=== PATIENT | male | born 1940 | race African-American/Black ===

== ENCOUNTER 2017-03-05 08:15 | Outpatient (RCR) ==
[2015-06-02 20:56] VITALS: BMI 27.3
--- NOTE | 2017-03-04 15:23 | RS.OPPTEV2 ---
Date of Note: 03/01/17 Visit #: 1 Date of Evaluation: 03/01/17 Payer Source: MEDICARE Treatment Diagnosis: Left shoulder pain, RTC tear and biceps tendonitis History of Condition/Mechanism of Injury:: Patient reports left shoulder pain for about 3 weeks. States he thought he had slept on the shoulder wrong. No specific known injury. Prior Level of Function.....Patient was independent with: ADL's, Self Care, Caregiving, Ambulation/Mobility, Community Integration/Access Functional Limitations: Sleep, Self Care, Reaching, Pushing, Pulling, Lifting, Carrying Current Subjective/complaints:: Patient reports receiving an injection in the left shoulder one week ago, which has helped. States he has no pain at rest, but the shoulder is sore. States most of his pain is usually in the posterior and anterior aspect of the shoulder joint. 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 Treatment Side (optional): Left Medical History Medical History: Unremarkable Patient's Goals: His goal is to get relief of left shoulder pain. Pain Assessment - Pain Description Pain Location: left shoulder Current Pain Intensity: 6/10 Functional Outcome Measure UE Functional Index: 71 (71/80=11.25% impaired) - G Codes & Severity Modifier G Codes & Modifier: Carry current CI. Carry goal CH Source of G Code score: UE functional index Observation - Observation Posture: Forward Head, Rounded Shoulders Handedness: Right Shoulder ROM: Right WFL's Shoulder Muscle Strength: Right WFL's - Left Shoulder ROM Left Shoulder Flexion: 110 (degrees AROM) Left Shoulder Abduction: 94 (degrees AROM) Left Shoulder External Rotation: 62 (degrees AROM) Left Shoulder ROM Limitations: Pain Comments: PROM of the left shoulder is WFL's with reports of pain with end range ER and IR. - Left Shoulder Strength Left Shoulder Flexion: 4+ Good + Left Shoulder Extension: 5 Normal Left Shoulder Abduction: 4+ Good + Left Shoulder Adduction: 5 Normal Left Shoulder External Rotation: 4 Good Left Shoulder Internal Rotation: 4 Good Comments: Pain reported with resisted ER and abduction. - Special Tests Shoulder Empty Can (Supraspinatus) Test: Positive Left Shoulder Speed's Sign Test: Positive Left Shoulder Drop Arm Test: Negative Left Shoulder Linares-Dale Impingement Test: Positive Left Palpation Comments:: Patient reports no tenderness with palpation throughout the GH joint. Sensation - Sensation Right Upper Extremity: Intact/Normal Left Upper Extremity: Intact/Normal Interventions - Exercise/Activities/Manual Therapy Exercises/Activities: Pt instructed in pendulum, scapular retraction, RTC series. Advised to perform the exercises in a range that does not increase any pain. Manual Therapy: NA HOME EXERCISE PROGRAM: pendulum, scapular retraction, RTC series. - Charges Total Direct Minutes: 40 mins Total Treatment Time: 40 mins Procedures billed for this date of service:: YULIA YANG Assessment Assessment: Patient presents to therapy with a diagnosis of left RTC tear and biceps tendonitis. He demonstrates limited AROM due to pain above shoulder height. Also demonstrates weakness of the left shoulder, especially into ER and IR. He will benefit from therapeutic exercises and modalities as indicated to reduce his pain and improve his functional left shoulder AROM. Patient Education: Education of diagnosis, Body/Joint mechanics, Home Exercise Program, Home Safety, Activity Modification, Education of Plan of Care Rehab Potential: Good Short Term Goals Goal #1: Pt independent and compliant with basic HEP. Goal to be met by: 03/15/17 Goal #2: Right shoulder AROM WFL's with minimal discomfort. Goal to be met by: 03/18/17 Goal #3: Right shoulder IR and ER strength 4+/5. Goal to be met by: 03/18/17 Wood Piler Goals Goal #1: Pt knows HEP and to cont. exercises to maintain functional level at DC. Goal to be met by: 04/13/17 Goal #2: Score on UE functional scale improved to 0 impairment. Goal to be met by: 04/13/17 Goal #3: Pt able to use left UE for selfcare and ADL's without discomfort. Goal to be met by: 04/13/17 Goal #4: Pt to demonstrate good postural awareness. Goal to be met by: 04/13/17 Plan - Treatment to be Provided Procedures: Therapeutic Exercises, Therapeutic Activity, Manual Therapy, Patient Education Modalities: Ultrasound/Phonophoresis, Cryotherapy, Hot Packs - Treatment Plan Frequency: 2-3 X week Duration: 4 weeks ORDER # VISITS AND/OR THROUGH DATE: 04/13/17 - Treatment Code (1) Shoulder pain Qualifiers: Laterality: left Chronicity: acute Qualified Description: Acute pain of left shoulder Qualifier Code(s): (M25.512) Pain in left shoulder (2) Shoulder stiffness Qualifiers: Laterality: left Qualified Description: Stiffness of shoulder joint, left Qualifier Code(s): (M25.612) Stiffness of left shoulder, not elsewhere classified (3) Rotator cuff tear Qualifiers: Rotator cuff tear extent: unspecified tear extent Laterality: left Qualified Description: Tear of left rotator cuff, unspecified tear extent Qualifier Code(s): (M75.102) Unspecified rotator cuff tear or rupture of left shoulder, not specified as traumatic
--- NOTE | 2017-03-05 10:26 | RS.OPPTDN ---
Subjective Date of Note: 03/05/17 Visit #: 2 Date of Evaluation: 03/01/17 Payer Source: MEDICARE Treatment Diagnosis: Left shoulder pain, RTC tear and biceps tendonitis Current Subjective/complaints:: Patient reports he has no pain. States he is working on HEP as instructed. States he will continue progression of resistive exercise with therabands as instructed today. Pain Assessment - Pain Description Pain Location: left shoulder Current Pain Intensity: 0/10 Interventions - Exercise/Activities/Manual Therapy Exercises/Activities: Reviewed HEP of pendulum, scapular retraction, and RTC series. Added 3# to RTC series. Red theraband for bilateral shoulder ER and left UE IR and ER with shoulder at 90 degrees flexion. Green theraband for scapular retraction. Isometrics for shoulder add, ext, abd, and flexion in neutral shoulder. "Empty-can" shoulder flexion. Total minutes of Exercise: 20mins Manual Therapy: NA HOME EXERCISE PROGRAM: pendulum, scapular retraction, RTC series. Red theraband for bilateral shoulder ER, and left shoulder IR and ER with shoulder at 90 degrees. Isometrics x4 directions. Green theraband for scapular retraction. - Charges Total Direct Minutes: 20mins Total Treatment Time: 20mins Procedures billed for this date of service:: EX Assessment: Patient reporting no pain and doing exercise as instructed. Will need to reassess progress next week and prepare for discharge as indicated. Patient Education: Education of diagnosis, Body/Joint mechanics, Home Exercise Program, Activity Modification Patient demonstrates compliance with HEP?: Yes Short Term Goals Goal #1: Pt independent and compliant with basic HEP. Goal to be met by: 03/15/17 (100%) Progress towards Goal:: Met Goal #2: Right shoulder AROM WFL's with minimal discomfort. Goal to be met by: 03/18/17 (100%) Progress towards Goal:: Met Goal #3: Right shoulder IR and ER strength 4+/5. Goal to be met by: 03/18/17 Progress towards Goal:: Progressing Comments:: 4 to 4+/5 MMT [facility] Goals Goal #1: Pt knows HEP and to cont. exercises to maintain functional level at DC. Goal to be met by: 04/13/17 Progress towards goal: Progressing Goal #2: Score on UE functional scale improved to 0 impairment. Goal to be met by: 04/13/17 Goal #3: Pt able to use left UE for selfcare and ADL's without discomfort. Goal to be met by: 04/13/17 Progress towards goal: Met Goal #4: Pt to demonstrate good postural awareness. Goal to be met by: 04/13/17 Progress towards goal: Met Plan PLAN OF CARE EXPIRES ON:: 04/13/17 ORDER # VISITS AND/OR THROUGH DATE: 04/13/17 PLAN: Continue Plan of Care (Will see patient again next week to review and progress exercise as indicated. If patient continues to be pain-free and independent with HEP, will prepare for discharge.)
--- NOTE | 2017-03-15 11:46 | RS.QUICKDC ---
Discharge from PT Date of Discharge: 03/14/17 Number of Visits: 2 Reason for Discharge: Patient attended initial Evaluation and one additional session. Patient was instructed in dx, joint mechanics, and HEP. He reported a significant improvement in pain on last visit. He stated he felt he could continue HEP. Patient made a follow-up appointment but did not attend. Patient was independent with HEP, AROM was WFL, and only had discomfort at end range. Please refer to last Daily Note for specifics of treatment and goals. (G-CODES : Carrying, Moving, and Handling Objects GOAL CH, D/C CI) Discharge at this time as patient did not attend last session.
== END 2017-03-24 ==
PROVIDERS: ATTEND Orthopaedic Surgery
DX: M75.102 Unspecified rotator cuff tear or rupture of left shoulder, not specified as traumatic (principal); M75.22 Bicipital tendinitis, left shoulder

== ENCOUNTER 2018-08-15 11:53 | Outpatient (CLI) ==
[2015-06-02 20:56] VITALS: BMI 27.3
== END 2018-08-15 11:54 | disposition home or self-care (01) ==
LOC: CAR 11:53
PROVIDERS: ATTEND Physician Assistant
DX: R94.31 Abnormal electrocardiogram [ECG] [EKG] (principal)
CPT/HCPCS: 93005; 93010

== ENCOUNTER 2018-09-02 06:46 | Outpatient (CLI) ==
[2015-06-02 20:56] VITALS: BMI 27.3
--- NOTE | 2018-09-02 13:59 | ECHO2D ---
Date of Exam: 09/02/18 Ordering Physician: DR. JAYNE ORTIZ Room #: OP Reason for Echo: SOB, CHEST HEAVINESS M-Mode Normal Adult Results LV Dimensions Normal Adult Results AoV Opening excursions >1.6 >1.6 LVEDD-base- 3.5-5.8 4.9 Ao root dimensions 2.0-3.7 3.3 LVESD-base- 3.1-4.6 L. Atrium dimensions 1.9-3.8 3.9 Post. Wall thickness 0.8-1.1 1.2 IV septum (thickness) 0.7-1.2 1.2 Post. Wall excursion 0.72-1.3 NORMAL Septal motion NORMAL Systolic motion R. Ventricular cavity 1.5-2.0 NORMAL LVEF 60% 60% Paradoxical septal wall motion NORMAL 2-D : 2-D M Mode Echocardiogram was performed using apical four chamber and left parasternal long and short axis views. Mitral, tricuspid and aortic valves appear to be normal. Contractility of the left ventricle seems to be normal, so is the cavity size. Left atrial cavity size and aortic root appear to be normal. There is no pericardial effusion. There is no thrombus noted in the left ventricular or left aortic cavity. No mitral valve prolapse noted. M-MODE: MV: NORMAL AV: NORMAL TV: NORMAL PV: CHAMBER SIZE: NORMAL WALL MOTION: NORMAL PERICARDIUM: NORMAL INTERPRETATION: 1. BORDERLINE LEFT VENTRICULAR HYPERTROPHY 2. NORMAL LEFT VENTRICULAR CONTRACTILITY 3. NORMAL VALVES MTDD
== END 2018-09-02 06:47 | disposition home or self-care (01) ==
LOC: CAR 06:46
PROVIDERS: ATTEND Internal Medicine
DX: R06.02 Shortness of breath (principal); R07.89 Other chest pain
CPT/HCPCS: 93005; 93010

== ENCOUNTER 2018-09-03 06:50 | Outpatient (CLI) | payer OTHER ==
[2015-06-02 20:56] VITALS: BMI 27.3
[2018-09-03] MEDS ORDERED: DOBUTAMINE 500 MG-D5W 250 ML IV ONE (08:13)
[2018-09-03] MEDS: DOBUTAMINE 500 MG-D5W 250 ML 500 MG in PREMIX 250 ML D5W 1 BAG IV ONE (08:19)
[2018-09-03] MEDS: ATROPINE SULFATE PFS ONE (08:35)
--- NOTE | 2018-09-03 10:50 | NM ---
Cardiac Stress Test HISTORY: Shortness of breath. Chest heaviness. COMPARISON: None of this type. TECHNIQUE: Resting: The patient was injected with 3.6 mCi of thallium 201 chloride intravenously after which a "resting" SPECT study of the heart was performed. Stress: The patient was stressed pharmacologically with dobutamine and at the appropriate time injec felipe with 26 millicuries of 99m technetium Sestamibi (Cardiolite) after which a "stress" SPECT study o f the heart was performed. Gated images of the heart were also obtained to assess wall motion and abimbola culate ejection fraction. For details of the stress protocol employed, reference is made to the sepa rate report of the performing physician. FINDINGS: The stress perfusion images demonstrate a region of decreased activity in the septum which appears to reperfuse at rest. The resting perfusion images demonstrate no evidence of significant r edistribution/ischemia elsewhere. The left ventricular ejection fraction (LVEF) is 65%. IMPRESSION: 1. Left ventricular myocardial perfusion demonstrates a region of ischemia in the septum. 2. The left ventricular ejection fraction (LVEF) is 65%.
--- NOTE | 2018-09-04 07:30 | DOBSTECHST ---
Ordering Physician: DR. JAYNE ORTIZ Date of Test: 09/03/18 Reason for Examination: SOB, CHEST HEAVINESS Smoking History: NONE Height: 67" Weight: 170 LBS Current Medications: AMLODIPINE, ASA, NEURONTIN, TAMSULOSIN Target Heart Rate: 120/142 S-T Segment Stage Time HR BPM BP MMHG Rhythm +/- Elevation Depression Comments/ Symptoms Control Sitting 52 148/68 SR X NONE Dobutamine 250mg/D5W 5cmg/KG/mn 10cmg/KG/mn 3:00 63 SR X NONE 15cmg/KG/mn 2:02 104 128/60 SR X NONE 20cmg/KG/mn 25cmg/KG/mn 30cmg/KG/mn 35cmg/KG/mn 40cmg/KG/mn 3 MIN POST INFUSION z 70 132/68 X NONE 6 MIN POST INFUSION z 62 140/70 X NONE DURATION OF INFUSION 5:02 MAXIMUM HEART RATE REACHED 104 97% OXYGEN SATURATION WITH DOBUTAMINE INFUSION Interpretation: 1. TEST POSITIVE FOR ISCHEMIC ST-T WAVE CHANGES 2. NO CHEST PAIN OR DISCOMFORT 3. NO ARRHYTHMIAS 4. BLOOD PRESSURE RESPONSE: ADEQUATE JENIFER LEFT VENTRICULAR CONTRACTILITY--RESTING AND WITH DOBUTAMINE INFUSION MTDD
--- NOTE | 2018-09-04 07:34 | ECHOSTRESS ---
Date of Exam: 09/03/18 Ordering Physician: DR. JAYNE ORTIZ Reason for Echo: SOB, CHEST HEAVINESS, DOBUTAMINE STRESS SESTAMIBI--POSITIVE FOR ISCHEMIA M-Mode Normal Adult Results LV Dimensions Normal Adult Results AoV Opening excursions >1.6 LVEDD-base- 3.5-5.8 Ao root dimensions 2.0-3.7 LVESD-base- 3.1-4.6 L. Atrium dimensions 1.9-3.8 Post. Wall thickness 0.8-1.1 IV septum (thickness) 0.7-1.2 Post. Wall excursion 0.72-1.3 Septal motion Systolic motion R. Ventricular cavity 1.5-2.0 LVEF 60% Paradoxical septal wall motion 2-D: NORMAL LEFT VENTRICULAR CONTRACTILITY--RESTING AND WITH DOBUTAMINE INFUSION M-MODE: MV: AV: TV: PV: CHAMBER SIZE: WALL MOTION: NORMAL LEFT VENTRICULAR CONTRACTILITY--RESTING AND WITH DOBUTAMINE INFUSION PERICARDIUM: INTERPRETATION: 1. NORMAL LEFT VENTRICULAR CONTRACTILITY--RESTING AND WITH DOBUTAMINE INFUSION MTDD
== END 2018-09-03 06:51 | disposition home or self-care (01) ==
LOC: CAR 06:50
PROVIDERS: ATTEND Internal Medicine
DX: R06.02 Shortness of breath (principal); R07.89 Other chest pain

== ENCOUNTER 2018-11-03 13:58 | Outpatient (RCR) ==
[2018-11-03 14:44] VITALS: TEMP 208; BMI 25.8
[2018-11-24 09:55] VITALS: BP 140/56
== END 2018-11-24 23:59 ==
LOC: CAR.REHAB 13:58
PROVIDERS: ATTEND Thoracic Surgery (Cardiothoracic Vascular Surgery)
DX: I25.110 Atherosclerotic heart disease of native coronary artery with unstable angina pectoris (principal)
CPT/HCPCS: 93798

== ENCOUNTER 2018-11-26 06:45 | Outpatient (RCR) ==
[2018-12-22 10:00] VITALS: BP 142/56
== END 2018-12-25 23:59 ==
LOC: CAR.REHAB 06:45
PROVIDERS: ATTEND Thoracic Surgery (Cardiothoracic Vascular Surgery)
DX: I25.110 Atherosclerotic heart disease of native coronary artery with unstable angina pectoris (principal)
CPT/HCPCS: 93798

== ENCOUNTER 2018-12-04 11:19 | Emergency (ER) ==
[2018-12-04 11:24] VITALS: BP 180/90; TEMP 97.9; BMI 25.0
[2018-12-04] MEDS ORDERED: MORPHINE 2 MG/ML SYRINGE IVP STA ×2 (11:38→12:16)
[2018-12-04] MEDS ORDERED: ZOFRAN 4 MG/2 ML IVP STA (11:39)
[2018-12-04] MEDS ORDERED: ASPIRIN CHEWABLE PO STA (11:39)
--- NOTE | 2018-12-04 13:17 | ED.PDOC ---
General ED Provider: Dr. MADISON HELMS Chief Complaint: Chest Pain Stated Complaint: chest pain Time Seen by Physician: 11:22 (seen with nursing staff c/o chest pain midsternal) Mode of Arrival: Walk-In Information Source: Patient, Family Exam Limitations: No limitations Primary Care Provider: CASSANDRA BELTRAN Nursing and Triage Documentation Reviewed and Agree: Yes Does patient meet sepsis criteria?: No System Inflammatory Response Syndrome: Not Applicable Sepsis Protocol: For patient's 13 years and over: Temp is 96.8 and below OR 101 and greater Pulse >90 BPM Resp >20/minute Acutely Altered Mental Status Are patient's symptoms suggestive of a new infection, such as: -Pneumonia -Skin, Soft Tissue -Endocarditis -UTI -Bone, Joint Infection -Implantable Device -Acute Abdominal Infection -Wound Infection -Meningitis -Blood Stream Catheter Infection -Unknown Cardiovascular Complaint Exam - Chest Pain Complaint/Exam Onset: Gradual Duration: this morning Symptoms Are: Still present Timing: Intermittent Length of Chest Pain Episodes: 1 hr Initial Severity: Moderate Current Severity: Moderate Location: Reports: Midsternal Pain Radiates: Reports: None Character: Reports: Tightness, Sharp Aggravating: Reports: None Alleviating: Reports: Oxygen, Spontaneous resolution Associated Signs and Symptoms: Denies: Diaphoresis, Nausea, Vomiting, Fever, Palpitations, Cough, Hemoptysis, Back pain, Abdominal pain, Dizziness, Short of air, Calf pain, Calf swelling Related History: Reports: Similar episode Review of Systems - Review Of Systems Constitutional: Reports: No symptoms Eyes: Reports: No symptoms Ears, Nose, Mouth, Throat: Reports: No symptoms Respiratory: Reports: No symptoms Cardiac: Reports: Chest pain GI: Reports: No symptoms : Reports: No symptoms Musculoskeletal: Reports: No symptoms Skin: Reports: No symptoms Neurological: Reports: No symptoms Endocrine: Reports: No symptoms Hematologic/Lymphatic: Reports: No symptoms All Other Systems: Reviewed and Negative Past Medical History - Past Medical History Previously Healthy: Yes Endocrine: Reports: Dyslipidemia Cardiovascular: Reports: Hypertension Respiratory: Reports: None Hematological: Reports: None Gastrointestinal: Reports: None Genitourinary: Reports: None Neuro/Psych: Reports: None Musculoskeletal: Reports: None Cancer: Reports: None - Surgical History General Surgical History: Reports: Orthopedic (LEFT ANKLE TENDON SURGERY) - Family History Family History: Reports: Unknown - Social History Smoking Status: Never smoker Hx Substance Use: No Alcohol Screening: Occasionally - Immunizations Tetanus Shot up to Date: No Physical Exam - Physical Exam Appearance: Well-appearing, No pain distress, Well-nourished Eyes: KIESHA, EOMI, Conjunctiva clear ENT: Ears normal, Nose normal, Oropharynx normal Respiratory: Airway patent, Breath sounds clear, Breath sounds equal, Respirations nonlabored Cardiovascular: RRR, Pulses normal, No rub, No murmur GI/: Soft, Nontender, No masses, Bowel sounds normal, No Organomegaly Musculoskeletal: Normal strength, ROM intact, No edema, No calf tenderness Skin: Warm, Dry, Normal color Neurological: Sensation intact, Motor intact, Reflexes intact, Cranial nerves intact, Alert, Oriented Psychiatric: Affect appropriate, Mood appropriate Interpretation - Chipper Machine Operator Rate: Normal Rhythm: Sinus Ectopy: None - EKG Interpretation Rate: Normal Rhythm: Sinus Ectopy: None [place]: NL ST Segment: Normal Re-Evaluation - Re-Evaluation Time of Re-Evaluation: 11:50 Vital Signs Stable: Yes Pain Level: 3/10 Appearance: NAD Lungs: Clear Skin: Warm and Dry Neuro: Alert and Oriented X3 CV: RRR - Re-Evaluation Time of Re-Evaluation: 13:19 Status: Improved Vital Signs Stable: Yes Pain Level: 0 Appearance: NAD Skin: Warm and Dry Neuro: Alert and Oriented X3 CV: RRR Physician Notification - Case Discussed Physician Notified: white Time of Notification: 13:38 Admit To: Inpatient Critical Care Note - Critical Care Note Total Time (mins): 60 Course - Course Hematology/Chemistry: 12/04/18 12:00 12/04/18 12:00 Orders, Labs, Meds: Lab Review 12/04/18 12/04/18 12/04/18 12:00 12:00 12:00 WBC 6.12 RBC 3.87 L Hgb 11.4 L Hct 35.8 L MCV 92.5 MCH 29.5 MCHC 31.8 RDW Coeff of Kandi 13.5 Plt Count 210 Immature Gran % (Auto) 0.3 Neut % (Auto) 69.4 Lymph % (Auto) 18.5 Grand % (Auto) 9.2 Eos % (Auto) 2.3 Baso % (Auto) 0.3 Immature Gran # (Auto) 0.0 Neut # (Auto) 4.3 Lymph # (Auto) 1.1 Grand # (Auto) 0.6 Eos # (Auto) 0.1 Baso # (Auto) 0.0 PT 10.6 INR 1.06 APTT 26.2 Sodium 137.3 Potassium 4.20 Chloride 103.2 Carbon Dioxide 30.0 Anion Gap 8.30 BUN 18.0 Creatinine 1.20 H Estimated GFR (MDRD) 71.00 BUN/Creatinine Ratio 15.00 Glucose 97.8 Calcium 9.54 Total Bilirubin 0.47 AST 15.4 L ALT 16.5 Alkaline Phosphatase 86.6 Total Creatine Kinase 62.4 Troponin I < 0.012 Total Protein 7.33 Albumin 4.02 Globulin 3.31 Albumin/Globulin Ratio 1.21 Orders Category Date Time Status EKG-(ED ONLY) Stat CARDIO 12/04/18 11:34 Completed EKG-(ED ONLY) Stat CARDIO 12/04/18 12:17 Completed NPO REMINDER: IMAGING ONCE CARE 12/04/18 11:37 Completed ED IV/MEDIPORT/POWERPORT .ONCE EMERGENCY 12/04/18 11:35 Active ED IV/MEDIPORT/POWERPORT .ONCE EMERGENCY 12/04/18 11:38 Inactive CBC W/ AUTO DIFF Stat LAB 12/04/18 12:00 Completed COMPREHENSIVE METABOLIC PANEL Stat LAB 12/04/18 12:00 Completed CREATINE KINASE Stat LAB 12/04/18 12:00 Completed PARTIAL THROMBOPLASTIN TIME Stat LAB 12/04/18 12:00 Completed PT WITH INR Stat LAB 12/04/18 12:00 Completed TROPONIN I Stat LAB 12/04/18 12:00 Completed 0.9 % Sodium Chloride [Saline Flush] MEDS 12/04/18 11:35 Active 1 syr IVF PRN PRN 0.9 % Sodium Chloride [Saline Flush] MEDS 12/04/18 11:38 Active 1 syr IVF PRN PRN Aspirin [Aspirin Chewable] MEDS 12/04/18 11:39 Discontinued 243 mg PO ONCE STA Aspirin [Aspirin EC] MEDS 12/05/18 08:00 Active 81 mg PO DAILYWM Atorvastatin Calcium [Atorvastatin Calcium] MEDS 12/05/18 09:00 Ordered 80 mg PO DAILY Cholecalciferol (Vitamin D3) [Vitamin D] MEDS 12/05/18 09:00 Ordered 1,000 unit PO DAILY Clopidogrel Bisulfate [Plavix] MEDS 12/05/18 09:00 Ordered 75 mg PO DAILY Gabapentin [Neurontin] MEDS 12/05/18 09:00 Ordered 300 mg PO DAILY Lisinopril [Zestril] MEDS 12/05/18 09:00 Ordered 5 mg PO DAILY Metoprolol Tartrate [Lopressor] MEDS 12/05/18 09:00 Ordered 25 mg PO DAILY Morphine Sulfate [Morphine 2 mg/ml Syringe] MEDS 12/04/18 11:38 Discontinued 4 mg IVP ONCE STA Morphine Sulfate [Morphine 2 mg/ml Syringe] MEDS 12/04/18 12:16 Discontinued 4 mg IVP ONCE STA Nitroglycerin [Nitrostat] MEDS 12/05/18 09:00 Ordered 0.4 mg SL DAILY Ondansetron HCl/Pf [Zofran 4 mg/2 ml] MEDS 12/04/18 11:39 Discontinued 4 mg IVP ONCE STA Tamsulosin HCl [Flomax] MEDS 12/05/18 09:00 Active 0.4 mg PO DAILY CHEST, 1V AP ONLY Stat RADS 12/04/18 13:[address] CHEST PE PROTOCOL Stat RADS 12/04/18 11:37 Stop Req Medications Generic Name Dose Route Start Last Admin Trade Name Freq PRN Reason Stop Dose Admin Aspirin 81 mg 12/05/18 08:00 [facility] [place]olecalciferol 1,000 unit 12/05/18 09:00 Vitamin D PO DAILY [facility] Clopidogrel Bisulfate 75 mg 12/05/18 09:00 Plavix PO DAILY [facility] Gabapentin 300 mg 12/05/18 09:00 Neurontin PO DAILY [facility] Lisinopril 5 mg 12/05/18 09:00 Zestril PO DAILY [facility] Metoprolol Tartrate 25 mg 12/05/18 09:00 Lopressor PO DAILY [facility] Nitroglycerin 0.4 mg 12/05/18 09:00 Nitrostat SL DAILY [facility] Non-Formulary Medication 80 mg 12/05/18 09:00 Atorvastatin Calcium [Atorvastatin Calcium] PO DAILY [facility] Sodium Chloride 1 syr 12/04/18 11:35 Saline Flush IVF PRN PRN To flush IV Sodium Chloride 1 syr 12/04/18 11:38 Saline Flush IVF PRN PRN To flush IV Tamsulosin HCl 0.4 mg 12/05/18 09:00 Flomax PO DAILY [facility] Discontinued Medications Generic Name Dose Route Start Last Admin Trade Name Freq PRN Reason Stop Dose Admin Aspirin 243 mg 12/04/18 11:39 12/04/18 11:49 Aspirin Chewable PO 12/04/18 11:40 243 mg ONCE STA Administration Morphine Sulfate 4 mg 12/04/18 11:38 12/04/18 11:47 Morphine 2 Mg/Ml Syringe IVP 12/04/18 11:39 4 mg ONCE STA Administration Morphine Sulfate 4 mg 12/04/18 12:16 12/04/18 12:26 Morphine 2 Mg/Ml Syringe IVP 12/04/18 12:17 4 mg ONCE STA Administration Ondansetron HCl 4 mg 12/04/18 11:39 12/04/18 11:49 Zofran 4 Mg/2 Ml IVP 12/04/18 11:40 4 mg ONCE STA Administration Vital Signs: Temp Pulse Resp BP Pulse Ox 12/04/18 11:20 97.9 F 77 20 180/90 H 98 MEDARDO Risk Score MEDARDO Risk Score: Risk Score Odds of by 30D 0 0.1 (0.1-0.2) 1 0.3 (0.2-0.3) 2 0.4 (0.3-0.5) 3 0.7 (0.6-0.9) 4 1.2 (1.0-1.5) 5 2.2 (1.9-2.6) 6 3.0 (2.5-3.6) 7 4.8 (3.8-6.1) Departure - Departure Time of Disposition: 14:00 Disposition: TSF SHORT-TRM HOSP Discharge Problem: Unstable angina, Chest pain Instructions: Angina (ED) Condition: Good Pt referred to PMD for follow-up: Yes IPMP verified?: No Additional Instructions: Please call your Family Physician as soon as possible to schedule a follow-up appointment. Allergies/Adverse Reactions: Allergies No Known Allergies Allergy (Unverified 12/04/18 11:24) Home Medications: Ambulatory Orders Aspirin [Ecotrin] 81 mg PO DAILY 04/13/14 Gabapentin 300 mg PO DAILY 06/03/15 Atorvastatin Calcium 80 mg PO DAILY 12/04/18 Cholecalciferol (Vitamin D3) [Vitamin D] 1,000 unit PO DAILY 12/04/18 Clopidogrel Bisulfate [Clopidogrel] 75 mg PO DAILY 12/04/18 Lisinopril [Zestril] 5 mg PO DAILY 12/04/18 Metoprolol Tartrate [Lopressor] 25 mg PO DAILY 12/04/18 Nitroglycerin 0.4 mg SL DAILY 12/04/18 Tamsulosin HCl [Flomax] 0.4 mg PO DAILY 12/04/18 Transfer Form Completed: Yes Disposition Discussed With: Patient, Family
--- NOTE | 2018-12-04 13:54 | DI ---
Exam: Single view of the chest. Comparison: CT chest performed 06/02/2015. Reason for exam: Pain. FINDINGS: No pneumothorax, pleural effusion, or focal consolidation. The cardiac silhouette is unch anged. The imaged osseous structures appear grossly unremarkable without acute fracture. Operative changes are seen after midline sternotomy. Impression: No acute cardiopulmonary process.
[2018-12-05] MEDS ORDERED: ASPIRIN EC PO SCH (08:00)
[2018-12-05] MEDS ORDERED: PLAVIX PO SCH (09:00)
[2018-12-05] MEDS ORDERED: NEURONTIN PO SCH (09:00)
[2018-12-05] MEDS ORDERED: NITROSTAT SL SCH (09:00)
[2018-12-05] MEDS ORDERED: VITAMIN D PO SCH (09:00)
[2018-12-05] MEDS ORDERED: NON-FORMULARY MEDICATION (Atorvastatin Calcium [Atorvastatin Calcium] 80 MG) PO SCH (09:00)
[2018-12-05] MEDS ORDERED: ZESTRIL PO SCH (09:00)
[2018-12-05] MEDS ORDERED: LOPRESSOR PO SCH (09:00)
[2018-12-05] MEDS ORDERED: FLOMAX PO SCH (09:00)
== END 2018-12-04 14:21 | disposition short-term general hospital (02) ==
LOC: ED 11:19
DX: I20.0 Unstable angina (principal); R07.9 Chest pain, unspecified; E78.5 Hyperlipidemia, unspecified; I10 Essential (primary) hypertension; Z79.899 Other long term (current) drug therapy
CPT/HCPCS: 36415; 80053; 82550; 84484; 85025; 85610; 85730; 93005; 93010; 96374; 96375; 96376; 99285

== ENCOUNTER 2018-12-26 06:48 | Outpatient (RCR) ==
[2019-01-21 08:53] VITALS: BP 146/72
== END 2019-01-22 23:59 ==
LOC: CAR.REHAB 06:48
PROVIDERS: ATTEND Thoracic Surgery (Cardiothoracic Vascular Surgery)
DX: I25.110 Atherosclerotic heart disease of native coronary artery with unstable angina pectoris (principal)
CPT/HCPCS: 93798

== ENCOUNTER 2019-01-23 06:07 | Outpatient (RCR) ==
[2019-02-18 09:05] VITALS: BP 134/54
== END 2019-02-22 23:59 ==
LOC: CAR.REHAB 06:07
PROVIDERS: ATTEND Thoracic Surgery (Cardiothoracic Vascular Surgery)
DX: I25.110 Atherosclerotic heart disease of native coronary artery with unstable angina pectoris (principal)
CPT/HCPCS: 93798

== ENCOUNTER 2019-05-07 07:09 | Inpatient (IN) ==
[2019-05-07] MEDS ORDERED: ALBUTEROL 0.083% NEB NEB STA (07:49)
[2019-05-07] MEDS ORDERED: ALBUTEROL 0.083% NEB NEB ONE (07:49)
[2019-05-07] MEDS ORDERED: SODIUM CHLORIDE 1,000 ML IV STA (08:06)
--- NOTE | 2019-05-07 08:10 | ED.PDOC ---
General ED Provider: Dr. KARIS FERGUSON Chief Complaint: Respiratory Complaint Stated Complaint: 79 y old patrient is afebrile,however both hin and report cough,mostly unproductive and "rattling" in his left lower and mid chest.He is concerned about pneumonia.Appeares ill and mildly subdued by the process.He decxribes yhe course of he events as he got a "coled" over last few days. Denies CHF,smoking opr other medical issues. Time Seen by Physician: 07:25 Mode of Arrival: Walk-In Information Source: Patient, Family Exam Limitations: No limitations Primary Care Provider: JAYNE ORTIZ Nursing and Triage Documentation Reviewed and Agree: Yes Does patient meet sepsis criteria?: No System Inflammatory Response Syndrome: Not Applicable Sepsis Protocol: For patient's 13 years and over: Temp is 96.8 and below OR 101 and greater Pulse >90 BPM Resp >20/minute Acutely Altered Mental Status Are patient's symptoms suggestive of a new infection, such as: -Pneumonia -Skin, Soft Tissue -Endocarditis -UTI -Bone, Joint Infection -Implantable Device -Acute Abdominal Infection -Wound Infection -Meningitis -Blood Stream Catheter Infection -Unknown Respiratory Complaint Exam - Respiratory Complaint/Exam Onset/Duration: several days Symptoms Are: Still present Timing: Intermittent Initial Severity: Mild Current Severity: Mild Location: Chest Character: Reports: Non-productive cough Aggravating: Reports: None Alleviating: Reports: Upright position Associated Signs and Symptoms: Reports: URI, Nasal congestion, Increased urination Related History: Reports: Similar episode Related Surgical History: Reports: None Pulmonary Embolism Risk Factors: None Cardiac Risk Factors: Reports: Hypertension Pseudomonas Risk Factors: Reports: None Tuberculosis Risk Factors: Reports: None Status Asthmaticus Risk Factors: Reports: None Home Oxygen Use: No Recent Stress Test: No Recent Echo/LV Function: No Current Antibiotic Use: No Current Asthma Medication Use: No Respiratory Distress: None Inadequate Respiratory Effort: No Dysphagia Present: No Stridor Present: No JVD Present: No Accessory Muscle Use: No Retractions: Not Present Diminished Breath Sounds: No Sinus Tenderness: None Grunting Respirations: No Kussmaul Respirations: No Differential Diagnoses: Airway Obstruction, Asthma, CHF, COPD Exacerbation, Bronchitis, Influenza, Lower Resp. Infection Quality Indicators For Pneumonia: Blood Cultures-SCU admit Non-Traumatic Chest Pain Syncope: EKG Performed Review of Systems - Review Of Systems Constitutional: Reports: Fever Eyes: Reports: No symptoms Ears, Nose, Mouth, Throat: Reports: No symptoms Respiratory: Reports: Short of air Cardiac: Reports: No symptoms GI: Reports: No symptoms : Reports: No symptoms Musculoskeletal: Reports: No symptoms Neurological: Reports: No symptoms Endocrine: Reports: No symptoms Hematologic/Lymphatic: Reports: No symptoms All Other Systems: Reviewed and Negative Past Medical History - Past Medical History Previously Healthy: Yes Endocrine: Reports: Dyslipidemia Cardiovascular: Reports: Hypertension Respiratory: Reports: None Hematological: Reports: None Gastrointestinal: Reports: None Genitourinary: Reports: None Neuro/Psych: Reports: None Musculoskeletal: Reports: None Cancer: Reports: None - Surgical History General Surgical History: Reports: Orthopedic (LEFT ANKLE TENDON SURGERY) - Family History Family History: Reports: Unknown - Social History Smoking Status: Never smoker Hx Substance Use: No Alcohol Screening: Occasionally Physical Exam - Physical Exam Appearance: Well-appearing Ill-appearing: Mild Pain Distress: None Eyes: KIESHA, EOMI, Conjunctiva clear ENT: Ears normal, Nose normal, Oropharynx normal Respiratory: Airway patent, Breath sounds clear, Breath sounds equal Cardiovascular: RRR, Pulses normal, No rub, No murmur GI/: Soft, Nontender, No masses, Bowel sounds normal, No Organomegaly Musculoskeletal: Normal strength, ROM intact, No edema, No calf tenderness Skin: Warm, Dry Neurological: Sensation intact, Motor intact, Reflexes intact, Cranial nerves intact, Alert, Oriented Psychiatric: Affect appropriate Re-Evaluation - Re-Evaluation Time of Re-Evaluation: 09:59 Status: Unchanged Vital Signs Stable: Yes (responded to 20 mg Labetalol from 190/90 to 164/89) Appearance: NAD Skin: Warm and Dry Neuro: Alert and Oriented X3 CV: RRR Critical Care Note - Critical Care Note Total Time (mins): 0 Course - Course Hematology/Chemistry: 05/07/19 07:40 05/07/19 07:57 Orders, Labs, Meds: Lab Review 05/07/19 05/07/19 05/07/19 07:40 07:40 07:45 WBC 7.70 RBC 4.09 L Hgb 12.4 L Hct 38.7 L MCV 94.6 H MCH 30.3 MCHC 32.0 RDW Coeff of Kandi 13.6 Plt Count 203 Immature Gran % (Auto) 0.3 Neut % (Auto) 67.6 Lymph % (Auto) 19.5 [place] % (Auto) 8.4 Eos % (Auto) 3.8 Baso % (Auto) 0.4 Immature Gran # (Auto) 0.0 Neut # (Auto) 5.2 Lymph # (Auto) 1.5 [place] # (Auto) 0.7 Eos # (Auto) 0.3 Baso # (Auto) 0.0 D-Dimer (Manual) Puncture Site R rad O2 Saturation 94.0 L ABG pH 7.348 L ABG pCO2 41.5 ABG pO2 74.0 L ABG HCO3 22.8 ABG Total CO2 24 ABG Base Excess -3 L Dimas Test + O2 Delivery Device Ra FiO2 % 21.0 Sodium Potassium Chloride Carbon Dioxide Anion Gap BUN Creatinine Estimated GFR (MDRD) BUN/Creatinine Ratio Glucose Lactic Acid Calcium Total Bilirubin AST ALT Alkaline Phosphatase Troponin I NT-Pro-B Natriuret Pep Total Protein Albumin Globulin Albumin/Globulin Ratio Urine Color Urine Clarity Urine pH Ur Specific [place] Urine Protein Urine Glucose (UA) Urine Ketones Urine Blood Urine Nitrite Urine Bilirubin Urine Urobilinogen Ur Leukocyte Esterase Influ A Molecular Assay Negative by naat Influ B Molecular Assay Negative by naat 05/07/19 05/07/19 05/07/19 07:57 07:57 07:57 WBC RBC Hgb Hct MCV MCH MCHC RDW Coeff of Kandi Plt Count Immature Gran % (Auto) Neut % (Auto) Lymph % (Auto) [place] % (Auto) Eos % (Auto) Baso % (Auto) Immature Gran # (Auto) Neut # (Auto) Lymph # (Auto) [place] # (Auto) Eos # (Auto) Baso # (Auto) D-Dimer (Manual) 1413.29 Puncture Site O2 Saturation ABG pH ABG pCO2 ABG pO2 ABG HCO3 ABG Total CO2 ABG Base Excess Dimas Test O2 Delivery Device FiO2 % Sodium 142.8 Potassium 4.10 Chloride 110.8 H Carbon Dioxide 25.7 Anion Gap 10.40 BUN 23.9 H Creatinine 1.19 H Estimated GFR (MDRD) 71.00 BUN/Creatinine Ratio 20.08 Glucose 94.1 Lactic Acid Calcium 9.17 Total Bilirubin 0.39 AST 34.0 ALT 19.8 Alkaline Phosphatase 92.4 Troponin I NT-Pro-B Natriuret Pep 167.000 Total Protein 6.96 Albumin 4.03 Globulin 2.93 Albumin/Globulin Ratio 1.37 Urine Color Urine Clarity Urine pH Ur Specific [place] Urine Protein Urine Glucose (UA) Urine Ketones Urine Blood Urine Nitrite Urine Bilirubin Urine Urobilinogen Ur Leukocyte Esterase Influ A Molecular Assay Influ B Molecular Assay 05/07/19 05/07/19 05/07/19 07:57 08:30 11:30 WBC RBC Hgb Hct MCV MCH MCHC RDW Coeff of Kandi Plt Count Immature Gran % (Auto) Neut % (Auto) Lymph % (Auto) [place] % (Auto) Eos % (Auto) Baso % (Auto) Immature Gran # (Auto) Neut # (Auto) Lymph # (Auto) [place] # (Auto) Eos # (Auto) Baso # (Auto) D-Dimer (Manual) Puncture Site O2 Saturation ABG pH ABG pCO2 ABG pO2 ABG HCO3 ABG Total CO2 ABG Base Excess Dimas Test O2 Delivery Device FiO2 % Sodium Potassium Chloride Carbon Dioxide Anion Gap BUN Creatinine Estimated GFR (MDRD) BUN/Creatinine Ratio Glucose Lactic Acid 1.07 Calcium Total Bilirubin AST ALT Alkaline Phosphatase Troponin I < 0.012 NT-Pro-B Natriuret Pep Total Protein Albumin Globulin Albumin/Globulin Ratio Urine Color Yellow Urine Clarity Clear Urine pH 5.0 Ur Specific [place] <=1.005 Urine Protein Negative Urine Glucose (UA) Negative Urine Ketones Negative Urine Blood Negative Urine Nitrite Negative Urine Bilirubin Negative Urine Urobilinogen 0.2 Ur Leukocyte Esterase Negative Influ A Molecular Assay Influ B Molecular Assay Orders Category Date Time Status ADMIT OBSERVATION [PLACE PATIENT OBSERVATION] .TO ADMISSION 05/07/19 12:52 Inactive MEDSURG (MONITORED BED) ABG DRAW REQUEST Stat CARDIO 05/07/19 07:41 Completed EKG-(ED ONLY) Stat CARDIO 05/07/19 07:42 Completed NEBULIZER TREATMENT Stat CARDIO 05/07/19 07:49 Completed NPO REMINDER: IMAGING ONCE CARE 05/07/19 09:40 Completed TELEMETRY MONITORING TELE CARE 05/07/19 12:53 Inactive O2 [ED APPLY O2] .ONCE EMERGENCY 05/07/19 10:48 Active Vital signs [ED VITAL SIGNS] .ONCE EMERGENCY 05/07/19 08:18 Active ABG Stat LAB 05/07/19 07:40 Completed BLOOD CULTURE (ED ONLY) Stat LAB 05/07/19 08:40 Received CBC W/ AUTO DIFF Stat LAB 05/07/19 07:40 Completed COLD AGGLUTININ TITER Stat LAB 05/07/19 07:57 Received COMPREHENSIVE METABOLIC PANEL Stat LAB 05/07/19 07:57 Completed D-DIMER Stat LAB 05/07/19 07:57 Completed FLU A/B MOLECULAR Stat LAB 05/07/19 07:45 Completed LACTIC ACID Stat LAB 05/07/19 08:30 Completed LEGIONELLA URINARY ANTIGEN Stat LAB 05/07/19 11:30 Received MOLECULAR GROUP A STREP Stat LAB 05/07/19 07:45 Completed PROBNP [NT-PROBNP] Stat LAB 05/07/19 07:57 Completed SPUTUM CULTURE Stat LAB 05/07/19 10:10 Received TROPONIN I Stat LAB 05/07/19 07:57 Completed URINALYSIS C & S IF INDICATED Stat LAB 05/07/19 11:30 Completed 0.9 % Sodium Chloride [Saline Flush] MEDS 05/07/19 08:35 Active 1 syr IVF PRN PRN Albuterol Sulfate 0.083% Neb [Albuterol 0.083% Neb] MEDS 05/07/19 07:49 Discontinued 1 vial NEB .STK-MED ONE Albuterol Sulfate 0.083% Neb [Albuterol 0.083% Neb] MEDS 05/07/19 07:49 Discontinued 1 vial NEB ONCE STA Labetalol HCl [Trandate] MEDS 05/07/19 09:10 Discontinued 20 mg IVP ONCE STA Sodium Chloride 0.9% [Sodium Chloride] 1,000 ml MEDS 05/07/19 08:06 Active IV 125 mls/hr CHEST, 2 VIEWS PA & LAT Stat RADS 05/07/19 07:[address] CHEST PE PROTOCOL Stat RADS 05/07/19 09:38 Completed Medications Generic Name Dose Route Start Last Admin Trade Name Freq PRN Reason Stop Dose Admin Azithromycin 500 mg 05/07/19 14:00 Zithromax PO 05/09/19 13:59 DAILY MAREN Hydrocortisone Sodium Succinate 125 mg 05/07/19 14:00 Solu-Cortef 250 Mg IVP Q8H MAREN Sodium Chloride 1,000 mls @ 125 mls/hr 05/07/19 08:06 05/07/19 08:14 Sodium Chloride IV 05/07/19 16:05 125 mls/hr .Q8H STA Administration Ceftriaxone Sodium 1 gm/ 50 mls @ 75 mls/hr 05/07/19 14:00 Sodium Chloride IV 05/10/19 13:59 DAILY MAREN Sodium Chloride 1 syr 05/07/19 08:35 05/07/19 09:28 Saline Flush IVF 1 syr PRN PRN Administration To flush IV Discontinued Medications Generic Name Dose Route Start Last Admin Trade Name Freq PRN Reason Stop Dose Admin Albuterol Sulfate 1 vial 05/07/19 07:49 05/07/19 08:10 Albuterol 0.083% Neb NEB 05/07/19 07:50 1 vial ONCE STA Administration Labetalol HCl 20 mg 05/07/19 09:10 05/07/19 09:27 Trandate IVP 05/07/19 09:11 20 mg ONCE STA Administration Vital Signs: Temp Pulse Resp BP Pulse Ox 05/07/19 09:05 64 20 164/90 H 05/07/19 09:00 64 20 195/95 H 97 05/07/19 07:10 96.4 F L 83 20 172/92 H 94 L Departure - Departure Time of Disposition: 14:01 Disposition: PLACED OBSERVATION Discharge Problem: Pneumonia Condition: Good Pt referred to PMD for follow-up: Yes IPMP verified?: No Allergies/Adverse Reactions: Allergies No Known Allergies Allergy (Verified 05/07/19 07:18) Home Medications: Ambulatory Orders Aspirin [Ecotrin] 81 mg PO DAILY 04/13/14 Gabapentin 300 mg PO DIRECTED 06/03/15 Atorvastatin Calcium 80 mg PO DAILY 12/04/18 Cholecalciferol (Vitamin D3) [Vitamin D] 1,000 unit PO DAILY 12/04/18 Clopidogrel Bisulfate [Clopidogrel] 75 mg PO DAILY 12/04/18 Metoprolol Tartrate [Lopressor] 25 mg PO DAILY 12/04/18 Nitroglycerin 0.4 mg SL PRN PRN 12/04/18 Tamsulosin HCl [Flomax] 0.4 mg PO DAILY 12/04/18 Amitriptyline HCl 10 mg PO BEDTIME 05/07/19 Disposition Discussed With: Patient, Family
[2019-05-07] MEDS ORDERED: TRANDATE IVP STA (09:10)
--- NOTE | 2019-05-07 11:35 | DI ---
EXAM: CHEST FRONTAL AND LATERAL VIEWS HISTORY: Persistent cough. COMPARISON: 12/04/2018 FINDINGS: Heart size remains within normal limits. Sternotomy wires are again noted. Mild ectasia of the aorta. No acute infiltrates are seen. No vascular congestion. There is no consolidation, vi sible pleural fluid or pneumothorax. Bones reveal no acute fracture. IMPRESSION: No acute cardiopulmonary process.
--- NOTE | 2019-05-07 11:36 | CT ---
EXAM: CTA CHEST (PE PROTOCOL) HISTORY: Respiratory changes, elevated D-dimer TECHNIQUE: CTA chest with intravenous contrast. Multiplanar images were provided with 3-D reconstru ctions. 75 mL Omnipaque. COMPARISON: 06/02/2015 FINDINGS: No pulmonary arterial filling defect is seen. There is at least mild atherosclerotic disease of the aorta. Aortic ectasia is noted. There is borderline aneurysmal caliber of the descending thoracic a riana at 2.9 cm slightly increased from 2.7 cm previously. Heart size is upper limit normal. No tessa cardial effusion is seen. There is biapical irregular pleuroparenchymal thickening suggesting apical fibrosis. Lung volumes ar e low. There is mild to moderate pulmonary vascular congestion. Probable subtle central interstitia l edema. There is bibasilar atelectasis, less likely patchy areas of mild pneumonia. No lobar conso lidation, pleural fluid or pneumothorax. Bones reveal levels of severe degenerative disc disease including the upper thoracic level and the mi d thoracic level. The mid thoracic level has noticeably worsened since previous exam. This appearan ce of the spine probably represents a change from longstanding degenerative disc process. Correlate clinically for any evidence of diskitis. If indicated, MRI correlation can be made. There is mild b ilateral gynecomastia. IMPRESSION: 1. No pulmonary arterial thromboembolism identified. 2. Low lung volumes and pulmonary vascular congestion with probable subtle central interstitial sisi a. No pleural fluid. 3. Mild bibasilar atelectasis versus minimal pneumonia. 4. Atherosclerotic disease. Aortic ectasia. Borderline aneurysmal caliber of the descending aorta at 2.9 cm. 5. Worsening changes of the thoracic spine as described in the last paragraph report, see above.
[2019-05-07] MEDS ORDERED: ZITHROMAX ONE (13:46)
[2019-05-07] MEDS ORDERED: ROCEPHIN ONE (13:46)
[2019-05-07] MEDS ORDERED: SOLU-MEDROL 125 MG ONE ×2 (13:46→13:48)
[2019-05-07] MEDS ORDERED: SOLU-CORTEF 250 MG ONE (13:58)
[2019-05-07] MEDS ORDERED: TOPROL XL PO SCH (14:00)
[2019-05-07] MEDS: ROCEPHIN 1 GM in SODIUM CHLORIDE 50 ML IV SCH (14:03)
[2019-05-07] MEDS: SOLU-CORTEF 250 MG IVP SCH ×2 (14:04→21:02)
[2019-05-07] MEDS: ZITHROMAX PO SCH (14:05)
--- NOTE | 2019-05-07 14:21 | PN ---
DATE OF SERVICE: 05/07/19 SUBJECTIVE: 79 year old black male seen in the emergency room. He is going to be admitted with diagnosis of acute bronchitis, chronic lung disease with possibility of pneumonitis. The patient had recent coronary bypass surgery. His cardiovascular status stable. He didn't feel good and had complaint of cough and congestion with yellowish sputum production. REVIEW OF SYSTEMS: CONSTITUTIONAL: No night sweats. No fatigue, malaise, lethargy. No fever or chills. HEENT: Eyes: No visual changes. No eye pain. No eye discharge. ENT: No runny nose. No epistaxis. No sinus pain. No sore throat. No odynophagia. No congestion. RESPIRATORY: No cough, no congestion. No hemoptysis. No shortness of breath. CARDIOVASCULAR: No angina symptoms. No CHF symptoms. No atypical chest pain for CAD. No palpitations. No PND. No orthopnea. GASTROINTESTINAL: No abdominal pain. No nausea or vomiting. No diarrhea or constipation. No hematemesis. No hematochezia. GENITOURINARY: No urgency. No frequency. No dysuria. No hematuria. No obstructive symptoms. No discharge. No pain. No significant abnormal bleeding. MUSCULOSKELETAL: No musculoskeletal pain; no joint swelling. NEUROLOGICAL: No headache. No neck pain. No syncope. No seizures. No dizziness. PSYCHIATRIC: Not anxious. No depression. No suicidal thoughts. No homicidal thoughts. SKIN: No rash. No lesions. No wounds. ENDOCRINE: No unexplained weight loss. No weight gain. HEMATOLOGIC/LYMPHATIC: No anemia. No purpura. No petechiae. No prolonged or excessive bleeding. No palpable lymph nodes. PHYSICAL EXAMINATION: HEENT: Head normocephalic, atraumatic. Eyes: Extraocular muscles are intact. Pupils are equal, round and reactive to light and accommodation. Ears: No lesions. Nose appeared normal. Throat: No exudate or erythema. Uvula is enlarged. NECK: Supple. No JVD, no carotid bruit. No lymphadenopathy or thyromegaly. LUNGS: Decreased breath sounds but clear to auscultation. Percussion note normal. Chest symmetrical. HEART: S1, S2, no S3. No murmurs. No cyanosis or clubbing. No ascites. Pulses: Dorsalis pedis and posterior tibial pulses +1 to +2 bilaterally. ABDOMEN: Soft. Nontender. Bowel sounds active. No CVA tenderness. No mass felt. EXTREMITIES: No edema. Full range of motion of all extremities, equal. NEUROLOGIC: No focal deficit. Cranial nerves II through XII are grossly intact. No headache, no double vision or headache. SKIN: Not dry. Intact. Turgor - normal. LYMPHATIC: No palpable lymph nodes/no lymphedema. MUSCULOSKELETAL: Normal joints with no swelling. Muscle tone is normal. LABS: Strep throat negative. CT scan of the chest for pulmonary protocol negative. CT of the abdomen unremarkable. Chest x-ray normal. ASSESSMENT: 1. Acute bronchitis/pneumonitis. PLAN: 1. Given IV Solu-Cortef 125 Q 8 hours. 2. Rocephin 1gram IV now 3. Zithromax 500mg daily for 3 days 4. The patient is going to be on telemetry CONDITION: Stable. TIME SPENT: More than 30 minutes. Plan and coordination of the patient's care discussed in the presence of nurse. WAQAS
[2019-05-07 15:09] VITALS: BMI 25.7
[2019-05-07] MEDS ORDERED: LASIX IVP STA (15:20)
[2019-05-07] MEDS ORDERED: LASIX ONE (15:33)
[2019-05-08] MEDS: SOLU-CORTEF 250 MG IVP SCH ×3 (05:45→21:14)
--- NOTE | 2019-05-08 08:45 | PCM.PROG ---
Attending Provider: ATTENDING PROVIDER: Dr. JAYNE ORTIZ This patient is seen with Saritha Alvarado, Nurse Practitioner. DATE OF SERVICE: 05/08/19 SUBJECTIVE: This 79 year old BLACK/ M was hospitalized 05/07/19. The patient is resting comfortably. Blood pressure has been elevated. Shortness of breath has significantly improved. CT showed vascular congestion. States he has been getting more short of breath and fatigue lately. REVIEW OF SYSTEMS: CONSTITUTIONAL: No night sweats. No fatigue, malaise, lethargy. No fever or chills. HEENT: Eyes: No visual changes. No eye pain. No eye discharge. ENT: No runny nose. No epistaxis. No sinus pain. No odynophagia. No congestion. RESPIRATORY: Cough, no congestion. No hemoptysis. Shortness of breath. CARDIOVASCULAR: No angina symptoms. No CHF symptoms. No atypical chest pain for CAD. No palpitations. No orthopnea.. GASTROINTESTINAL: No abdominal pain. No nausea or vomiting. No diarrhea or constipation. No hematemesis. No hematochezia. GENITOURINARY: No urgency. No frequency. No dysuria. No hematuria. No obstructive symptoms. No discharge. No pain. No significant abnormal bleeding. MUSCULOSKELETAL: No musculoskeletal pain; no joint swelling. NEUROLOGICAL: Awake, alert, oriented to time, place and person. No headache. No neck pain. No syncope. No seizures. No dizziness. PSYCHIATRIC: Not anxious. No depression. No suicidal thoughts. No homicidal thoughts. SKIN: No rash. No lesions. No wounds. ENDOCRINE: No unexplained weight loss. No weight gain. HEMATOLOGIC/LYMPHATIC: No anemia. No purpura. No petechiae. No prolonged or excessive bleeding. No palpable lymph nodes. PHYSICAL EXAMINATION: GENERAL: The patient is awake, alert and oriented, lying in bed in no distress. VITAL SIGNS: Temperature 97.7 F, Pulse 76, Respiratory Rate 17, BP 160/90, Pulse Ox 96% HEENT: Head normocephalic, atraumatic. Eyes: Extraocular muscles are intact. Pupils are equal, round and reactive to light and accommodation. Ears: No lesions. Nose appeared normal. Throat: No exudate or erythema. NECK: Supple. No JVD, no carotid bruit. No lymphadenopathy or thyromegaly. LUNGS: Diminished breath sounds, faint expiratory wheezing. Clear to auscultation. Percussion note normal. Chest symmetrical. HEART: S1, S2, no S3. No murmurs. No cyanosis or clubbing. No ascites. Pulses: Dorsalis pedis and posterior tibial pulses +1 to +2 both sides. ABDOMEN: Soft. Non-tender. Bowel sounds active. No CVA tenderness. No mass felt. EXTREMITIES: No edema. Full range of motion of all extremities, equal. NEUROLOGIC: No focal deficit. Cranial nerves II through XII are grossly intact. No headache, no double vision or headache. SKIN: Not dry. Intact. Turgor-normal. LYMPHATIC: No palpable lymph nodes/no lymphedema. MUSCULOSKELETAL: Normal joints with no swelling. Muscle tone is normal. LAB REVIEW: 05/08/19 05:00 05/08/19 05:00 05/08/19 05:00: Sodium 143.7, Potassium 3.99, Chloride 104.7, Carbon Dioxide 27.7, Anion Gap 15.29, BUN 26.0 H, Creatinine 1.37 H, Estimated GFR (MDRD) 61.00 , BUN/Creatinine Ratio 18.97, Glucose 134.7 H, Calcium 9.80, Total Bilirubin 0.59, AST 23.8, ALT 23.0, Alkaline Phosphatase 97.4, Total Protein 8.27 H, Albumin 4.69, Globulin 3.58, Albumin/Globulin Ratio 1.31 05/08/19 05:00: WBC 11.46 H, RBC 4.81, Hgb 14.4, Hct 45.2 D, MCV 94.0, MCH 29.9 , MCHC 31.9, RDW Coeff of Kandi 13.4, Plt Count 267 D, Immature Gran % (Auto) 0.3 , Neut % (Auto) 89.0, Lymph % (Auto) 8.1 L, [place] % (Auto) 2.5, Eos % (Auto) 0.0 , Baso % (Auto) 0.1, Immature Gran # (Auto) 0.0, Neut # (Auto) 10.2 H, Lymph # ( Auto) 0.9, [place] # (Auto) 0.3 L, Eos # (Auto) 0.0, Baso # (Auto) 0.0 05/07/19 11:30: Urine Color Yellow, Urine Clarity Clear, Urine pH 5.0, Ur Specific [place] <=1.005, Urine Protein Negative, Urine Glucose (UA) Negative, Urine Ketones Negative, Urine Blood Negative, Urine Nitrite Negative, Urine Bilirubin Negative, Urine Urobilinogen 0.2, Ur Leukocyte Esterase Negative 05/07/19 08:30: Lactic Acid 1.07 05/07/19 07:57: Troponin I < 0.012 05/07/19 07:57: D-Dimer (Manual) 1413.29 05/07/19 07:57: NT-Pro-B Natriuret Pep 167.000 05/07/19 07:57: Sodium 142.8, Potassium 4.10, Chloride 110.8 H, Carbon Dioxide 25.7, Anion Gap 10.40, BUN 23.9 H, Creatinine 1.19 H, Estimated GFR (MDRD) 71.00 , BUN/Creatinine Ratio 20.08, Glucose 94.1, Calcium 9.17, Total Bilirubin 0.39, AST 34.0, ALT 19.8, Alkaline Phosphatase 92.4, Total Protein 6.96, Albumin 4.03 , Globulin 2.93, Albumin/Globulin Ratio 1.37 05/07/19 07:45: Influ A Molecular Assay Negative by naat, Influ B Molecular Assay Negative by naat 05/07/19 07:40: WBC 7.70, RBC 4.09 L, Hgb 12.4 L, Hct 38.7 L, MCV 94.6 H, MCH 30.3, MCHC 32.0, RDW Coeff of Kandi 13.6, Plt Count 203, Immature Gran % (Auto) 0.3, Neut % (Auto) 67.6, Lymph % (Auto) 19.5, [place] % (Auto) 8.4, Eos % (Auto) 3.8, Baso % (Auto) 0.4, Immature Gran # (Auto) 0.0, Neut # (Auto) 5.2, Lymph # ( Auto) 1.5, [place] # (Auto) 0.7, Eos # (Auto) 0.3, Baso # (Auto) 0.0 05/07/19 07:40: Puncture Site R rad, O2 Saturation 94.0 L, ABG pH 7.348 L, ABG pCO2 41.5, ABG pO2 74.0 L, ABG HCO3 22.8, ABG Total CO2 24, ABG Base Excess -3 L , Dimas Test +, O2 Delivery Device Ra, FiO2 % 21.0 ASSESSMENT: Please see below. 1. Acute pneumonitis 3. Hypertension 3. CHF 4. Chronic kidney disease 5. CABG 2018 PLAN: 1. Metoprolol 50mg twice a day 2. Cozaar 50mg daily 3. Echo 4. 125 Solu-Cortef Q 12 hours 5. Continue all home medications 6. Rocephin 1gram IV daily 7. Zithromax 500mg PO daily Plan and coordination of the patient's care discussed in the presence of Pediatric Neurologist and nurse. SCRIBED BY: LISANDRO PRICE [employer]er Operator scribed while in presence of service performed by Dr. Ortiz/Saritha Alvarado APRN on 05/08/19 ([id number])
[2019-05-08] MEDS ORDERED: NITROSTAT SL PRN (08:53)
[2019-05-08] MEDS ORDERED: NEURONTIN PO SCH ×2 (09:00→21:00)
[2019-05-08] MEDS ORDERED: NON-FORMULARY MEDICATION (Atorvastatin Calcium [Atorvastatin Calcium] 80 MG) PO SCH (09:00)
[2019-05-08] MEDS: ROCEPHIN 1 GM in SODIUM CHLORIDE 50 ML IV SCH (09:30)
[2019-05-08] MEDS: ZITHROMAX PO SCH (09:31)
[2019-05-08] MEDS: PLAVIX PO SCH (09:31)
[2019-05-08] MEDS: ASPIRIN EC PO SCH (09:31)
[2019-05-08] MEDS: VITAMIN D PO SCH (09:31)
[2019-05-08] MEDS: COZAAR PO SCH (09:31)
[2019-05-08] MEDS: NEURONTIN PO SCH (09:31)
[2019-05-08] MEDS: TOPROL XL PO SCH ×2 (09:32→21:14)
[2019-05-08] MEDS: FLOMAX PO SCH (09:32)
--- NOTE | 2019-05-08 11:52 | PN ---
DATE OF SERVICE: 05/08/19 SUBJECTIVE: The patient was seen and examined with Nurse Practitioner. The patient's condition has improved. Bronchitis seems to be resolving. Uvula is less in size. PHYSICAL EXAMINATION: HEENT: Head normocephalic, atraumatic. Eyes: Extraocular muscles are intact. Pupils are equal, round and reactive to light and accommodation. Ears: No lesions. Nose appeared normal. Throat: No exudate or erythema. NECK: Supple. No JVD, no carotid bruit. No lymphadenopathy or thyromegaly. LUNGS: Clear to auscultation. Percussion note normal. Chest symmetrical. HEART: S1, S2, no S3. No murmurs. No cyanosis or clubbing. No ascites. Pulses: Dorsalis pedis and posterior tibial pulses +1 to +2 bilaterally. ABDOMEN: Soft. Nontender. Bowel sounds active. No CVA tenderness. No mass felt. EXTREMITIES: No edema. Full range of motion of all extremities, equal. NEUROLOGIC: No focal deficit. Cranial nerves II through XII are grossly intact. No headache, no double vision or headache. SKIN: Not dry. Intact. Turgor - normal. LYMPHATIC: No palpable lymph nodes/no lymphedema. MUSCULOSKELETAL: Normal joints with no swelling. Muscle tone is normal. PLAN: 1. We will do PFT tomorrow 2. Echo CONDITION: Stable. TIME SPENT: More than 30 minutes. Plan and coordination of the patient's care discussed in the presence of nurse. WAQAS
[2019-05-08] MEDS ORDERED: ELAVIL PO SCH (21:00)
[2019-05-09 05:38] VITALS: BP 169/71; TEMP 97.6
[2019-05-09] MEDS: SOLU-CORTEF 250 MG IVP SCH (08:34)
[2019-05-09] MEDS: ROCEPHIN 1 GM in SODIUM CHLORIDE 50 ML IV SCH (08:34)
[2019-05-09] MEDS: ZITHROMAX PO SCH (08:35)
[2019-05-09] MEDS: VITAMIN D PO SCH (08:35)
[2019-05-09] MEDS: FLOMAX PO SCH (08:35)
[2019-05-09] MEDS: ASPIRIN EC PO SCH (08:36)
[2019-05-09] MEDS: NEURONTIN PO SCH (08:36)
[2019-05-09] MEDS: COZAAR PO SCH (08:36)
[2019-05-09] MEDS: TOPROL XL PO SCH (08:36)
[2019-05-09] MEDS: PLAVIX PO SCH (08:48)
[2019-05-09] MEDS ORDERED: LIPITOR PO SCH (09:00)
--- NOTE | 2019-05-11 08:09 | HP ---
DATE OF SERVICE: 05/07/19 REASON FOR HOSPITALIZATION/HISTORY OF PRESENT ILLNESS: This is a 79 year old male who presented to the emergency room complaining of cough, shortness of breath and stated that he had a rattling in his chest. PAST MEDICAL HISTORY: Fatty liver Chronic kidney disease stage 2 to 3. Hypertension Polyarthritis GERD Dyslipidemia Carotid stenosis, he sees Dr. Saldivar Anemia Headaches Coronary artery disease Severe Dyslipidemia PAST SURGICAL HISTORY: Triple bypass on August [address] Osorio REVIEW OF SYSTEMS: CONSTITUTIONAL: No night sweats. No fatigue, malaise, lethargy. No fever or chills. HEENT: Eyes: No visual changes. No eye pain. No eye discharge. ENT: No runny nose. No epistaxis. No sinus pain. No sore throat. No odynophagia. No ear pain. No congestion. RESPIRATORY: Cough, no congestion. No hemoptysis. Shortness of breath. Wheezing. CARDIOVASCULAR: No angina symptoms. No CHF symptoms. No atypical chest pain for CAD. No palpitations. No PND. No orthopnea. GASTROINTESTINAL: No abdominal pain. No nausea or vomiting. No diarrhea or constipation. No hematemesis. No hematochezia. GENITOURINARY: No urgency. No frequency. No dysuria. No hematuria. No obstructive symptoms. No discharge. No pain. No significant abnormal bleeding. MUSCULOSKELETAL: No musculoskeletal pain. No joint swelling. No arthritis. NEUROLOGICAL: No headache. No neck pain. No syncope. No seizures. No dizziness. PSYCHIATRIC: Not anxious. No depression. No suicidal thoughts. No homicidal thoughts. SKIN: No rash. No lesions. No wounds. ENDOCRINE: No unexplained weight loss. No weight gain. HEMATOLOGIC/LYMPHATIC: No anemia. No purpura. No petechiae. No prolonged or excessive bleeding. No palpable lymph nodes. PERSONAL/FAMILY/SOCIAL HISTORY: The patient is and lives with his . He reports he never smoked, no alcohol or illicit drug use. MEDICATIONS: Ecotrin 81mg PO daily Gabapentin 300mg PO as directed Nitroglycerin 0.4mg SL PRN Lopressor 25mg PO daily Clopidogrel 75mg PO daily Atorvastatin 80mg Po daily Vitamin D 1,000mg unit PO daily Flomax 0.4mg PO daily Amitriptyline 10mg PO bedtime ALLERGIES: No known allergies PHYSICAL EXAMINATION: GENERAL: The patient is alert and oriented times three. HEENT: Head normocephalic, atraumatic. Eyes: Extraocular muscles are intact. Pupils are equal, round and reactive to light and accommodation. Ears: No lesions. Nose appeared normal. Throat: No exudate or erythema. NECK: Supple. No JVD, no carotid bruit. No lymphadenopathy or thyromegaly. LUNGS: Diminished breath sounds with inspiratory and expiratory wheezing. Clear to auscultation. Percussion note normal. Chest symmetrical. HEART: Regular heart sounds. S1, S2, no S3. No murmurs. No cyanosis or clubbing. No ascites. Pulses: Dorsalis pedis and posterior tibial pulses +1 to +2 bilaterally. ABDOMEN: Soft. Nontender. Bowel sounds active. No CVA tenderness. No mass felt. EXTREMITIES: No edema. Full range of motion of all extremities, equal. NEUROLOGIC: No focal deficit. Cranial nerves II through XII are grossly intact. No headache, no double vision or headache. SKIN: Not dry. Intact. Turgor - normal. LYMPHATIC: No palpable lymph nodes/no lymphedema. MUSCULOSKELETAL: Normal joints with no swelling. Muscle tone is normal. LABS: Sodium 142, potassium 4.1, BUN 23., creatinine 1.19, AST 34, ALT 19, Alkaline phosphatase 92, Troponin >0.01, Rapid flu A and B negative. Strep Negative. ABG on room air pH 7.348, pCO2 41, pO2 74, base excess -3, bicarb 22.8, TCO2 24, O2 94, WBC 7.7, Hgb 12.4, hct 38.7, plt count 203, Pro BNP 1.67, D-Dimer 1,400. Chest x-ray showed no acute cardio pulmonary process. Chest CT with PE protocol shows low lung volumes and pulmonary vascular congestion. No pleural fluid. This is likely an over read given his PRO BNP is normal. Mild atelectasis versus pneumonia, Atherosclerotic disease. ASSESSMENT: 1. Acute pneumonitis 2. Shortness of breath 3. Possible CHF, vascular congestion per chest CT PLAN: 1. We will admit 2. Routine telemetry orders 3. CBC and CMP daily 4. Rocephin 1 gram IV daily 5. Zithromax 500mg PO daily times three day 6. Solu-Cortef 125mg IV Q 8 hours 7. Oxygen at 1-2 liters as needed 8. Continue all home medications 9. Regular diet 10.40mg IV Lasix now Will follow closely. TIME SPENT: More than 70 minutes. ABAD
--- NOTE | 2019-05-11 08:51 | ECHO2D ---
Date of Exam: 05/09/19 Ordering Physician: DR. JAYNE ORTIZ Room #: 121 Reason for Echo: SOB, CABG, HTN M-Mode Normal Adult Results LV Dimensions Normal Adult Results AoV Opening excursions >1.6 >1.6 LVEDD-base- 3.5-5.8 4.6 Ao root dimensions 2.0-3.7 3.2 LVESD-base- 3.1-4.6 L. Atrium dimensions 1.9-3.8 4.6 Post. Wall thickness 0.8-1.1 1.3 IV septum (thickness) 0.7-1.2 1.2 Post. Wall excursion 0.72-1.3 NORMAL Septal motion 0.8 Systolic motion R. Ventricular cavity 1.5-2.0 NORMAL LVEF 60% 60% Paradoxical septal wall motion NORMAL 2-D : 2-D M Mode Echocardiogram was performed using apical four chamber and left parasternal long and short axis views. Mitral, tricuspid and aortic valves appear to be normal. Contractility of the left ventricle seems to be normal, so is the cavity size. ENLARGED LEFT ATRIAL CAVITY. Aortic root appears to be normal. There is no pericardial effusion. There is no thrombus noted in the left ventricular or left aortic cavity. No mitral valve prolapse noted. M-MODE: MV: NORMAL AV: NORMAL TV: NORMAL PV: CHAMBER SIZE: ENLARGED LEFT ATRIAL CAVITY WALL MOTION: NORMAL PERICARDIUM: NORMAL INTERPRETATION: 1. LEFT VENTRICULAR HYPERTROPHY WITH ENLARGED LEFT ATRIAL CAVITY (4.6 CM) 2. BORDERLINE HYPOKINETIC SEPTUM --EJECTION FRACTION 60% 3. NORMAL VALVES 4. NORMAL LEFT VENTRICLE CAVITY SIZE MTDD
--- NOTE | 2019-05-11 09:36 | DS ---
DATE OF SERVICE: 05/09/19 FINAL DIAGNOSIS: 1. Acute bronchitis 2. Chronic lung disease 3. Coronary bypass surgery 4. Hypertension 5. Dyslipidemia 6. Chronic kidney disease DISCHARGE INSTRUCTIONS: Discharge home. Continue the same medications he was on before. The patient will be seen in 5-7 days as an outpatient probably Saturday after next in the morning. If any cough, congestion or shortness of breath go to the emergency room. MEDICATIONS AT DISCHARGE: Ecotrin 81mg PO daily Gabapentin 300mg PO as directed Nitroglycerin 0.4mg SL PRN Lopressor 25mg PO daily Clopidogrel 75mg PO daily Atorvastatin 80mg PO daily Vitamin D 1,000 unit PO daily Flomax 0.4mg PO daily Amitriptyline 10mg PO bedtime NEW PRESCRIPTIONS: Keflex 500mg three times a day a day for 5 days. Prednisone 10mg twice a day for 5 days DIET INSTRUCTIONS: As tolerated ACTIVITY: Advised to rest. SMOKING: Nonsmoker DISEASE SPECIFIC EDUCATION: New medications Follow up HOSPITAL COURSE: 79 year old black male was hospitalized with acute bronchitis with mild wheezing. The patient had these symptoms for a few days. The patient was treated with IV Steroids and Zithromax with Rocephin. The patient's condition improved remarkably. He was up and about. There was practically no coughing on his physical exam his lungs were clear. Heart: S1 and S2 and cardiovascular status was stable. The patient was afebrile with no symptoms for CHF or coronary insufficiency. His echo showed LVH with normal LV contractility. He has mildly hypokinetic septum which could be from coronary bypass surgery. His LA cavity was mild enlarged. CONDITION: Stable. TIME SPENT: More than 60 minutes. [facility] CENTERAnnamaria
--- NOTE | 2019-05-11 09:37 | PN ---
05/07/19: Level 5 05/08/19: Intermediate 05/09/19: D as in discharge MTDD
== END 2019-05-09 12:25 | disposition home or self-care (01) | DRG 195 ==
LOC: ED 07:09 → OBSVTOIN 12:53 → MEDSURG B 12:53
PROVIDERS: ADMIT Internal Medicine; ATTEND Internal Medicine
DX: J18.9 Pneumonia, unspecified organism (principal); J06.9 Acute upper respiratory infection, unspecified; J20.9 Acute bronchitis, unspecified; I10 Essential (primary) hypertension; I50.9 Heart failure, unspecified; E78.5 Hyperlipidemia, unspecified; N18.9 Chronic kidney disease, unspecified; R05 Cough; R09.81 Nasal congestion; R35.0 Frequency of micturition; R06.02 Shortness of breath; Z95.1 Presence of aortocoronary bypass graft
CPT/HCPCS: 36415; 80053; 81001; 82803; 83605; 83880; 84484; 85025; 85379; 86157; 87040; 87070; 87186; 87449; 87502; 87651; 93005; 93010; 94640; 96361; 96365; 96375; 99284